=== PATIENT | male | born 1970 | race Caucasian/White ===

== ENCOUNTER 2017-06-07 15:34 | Emergency (ER) | payer OTHER ==
[~2017-06-07] VITALS: Ht 167.6 cm; Wt 92.1 kg
--- NOTE | 2017-06-07 16:50 | ED GENERAL ADULT ---
History of Present Illness General Chief Complaint: General Adult Stated Complaint: SIB PCP FOR HERNIA Source: patient Exam Limitations: no limitations Vital Signs & Intake/Output Vital Signs & Intake/Output Vital Signs Date Time Temp Pulse Resp B/P B/P Pulse O2 O2 Flow FiO2 Mean Ox Delivery Rate 06/07 2014 97.5 85 18 118/64 97 Room Air ED Intake and Output 03/ 0000 06/07 1200 Intake Total 1000 Output Total 1 Balance 999 Intake, IV 1000 Output, Urine 1 Patient 203 lb Weight Weight Reported by Patient Measurement Method Allergies Coded Allergies: No Known Allergies (06/07/17) Triage Note: PT SENT IN BY TERESSA THORNTON APRN FOR HERNIA. PT STATES HE IS HAVING ABD PAIN. PT REPORTS PAIN FOR THE PAST 3 DAYS WITH INCREASE IN PAIN TODAY. Triage Nurses Notes Reviewed? yes Onset: Abrupt Duration: day(s): (2-3), constant, continues in ED, getting worse Timing: recent history Injury Environment: home Severity: mild, moderate Severity Numbers: 8 No Modifying Factors: none HPI: 47-year-old male past medical history of chronic back pain presents for evaluation of abdominal pain and hernia. Patient states that he's had an abdominal wall hernia present for the past several years. He states that recently over the past few weeks is started to become more painful. He states that about 3 days ago the pain became severe and constant. He denies any trauma or heavy lifting or straining. The pain is located diffusely in his abdomen. It is worse with sitting upright or touching the area. No fever or changes in skin color nausea vomiting diarrhea. No chest pain or shortness of breath. He takes 30 mg oxycodone tablets 3 times a day for his chronic back pain. He states this has not been helping. No other medications for pain. (Collins Ortiz) Past History Travel History Traveled to [place] past 21 day No Medical History Any Pertinent Medical History? see below for history Gastrointestinal: HERNIA Musculoskeletal: CHRONIC BACK ISSUES Surgical History Surgical History: non-contributory Psychosocial History What is your primary language Ukrainian Tobacco Use: Current Not Daily Daily Tobacco Use Amount/Type: =< 4 Cigarettes daily ETOH Use: denies use Illicit Drug Use: denies illicit drug use Family History Hx Contributory? No (Collins Ortiz) Review of Systems Review of Systems Constitutional: Reports: no symptoms. EENTM: Reports: no symptoms. Respiratory: Reports: no symptoms. Cardiovascular: Reports: no symptoms. GI: Reports: see HPI, abdominal pain. Genitourinary: Reports: no symptoms. Musculoskeletal: Reports: see HPI, back pain. Skin: Reports: no symptoms. Neurological/Psychological: Reports: no symptoms. Hematologic/Endocrine: Reports: no symptoms. Immunologic/Allergic: Reports: no symptoms. All Other Systems: Reviewed and Negative (Collins Ortiz) Physical Exam Physical Exam General Appearance: well developed/nourished, no apparent distress, alert, awake , obese Head: atraumatic, normal appearance Eyes: Bilateral: normal appearance, PERRL, EOMI. Ears, Nose, Throat: normal pharynx, normal ENT inspection, hearing grossly normal Neck: normal inspection, supple, full range of motion Respiratory: normal breath sounds, chest non-tender, no respiratory distress, lungs clear Cardiovascular: regular rate/rhythm, normal peripheral pulses Peripheral Pulses: 2+ radial (R), 2+ radial (L) Gastrointestinal: normal bowel sounds, soft, no organomegaly, patient has what appears to be an abdominal wall defect located in the midline of the abdomen. No bruising or erythema or induration. The area is very easily reduced. Back: normal inspection, normal range of motion, lumbar paraspinous muscles tender to palpation bilaterally. No midline pain. No step-offs or deformities no bruising swelling or abrasions Extremities: normal inspection, normal range of motion, no edema Neurologic/Psych: no motor/sensory deficits, awake, alert, oriented x 3 Skin: intact, normal color, warm/dry Core Measures ACS in differential dx? No CVA/TIA Diagnosis: No Sepsis Present: No Sepsis Focused Exam Completed? No (Collins Ortiz) Progress Differential Diagnoses I considered the following diagnoses in my evaluation of the patient: [ Strangulated hernia, incarcerated hernia, hiatal hernia, cholecystitis, pancreatitis, small bowel obstruction gastritis] Plan of Care: Orders Procedure Date/time Status URINALYSIS 06/07 1710 Complete LIPASE 06/07 1710 Complete C-REACTIVE PROTEIN 06/07 1710 Complete COMPREHENSIVE METABOLIC PANEL 06/07 1710 Complete CBC WITHOUT DIFFERENTIAL 06/07 1710 Complete Laboratory Tests 06/07/17 1750: Urine Color YEL, Urine Clarity CLEAR, Urine pH 6.0, Ur Specific [place] 1.025, Urine Protein 30 H, Urine Ketones NEG, Urine Nitrite NEG, Urine Bilirubin NEG, Urine Urobilinogen 0.2, Ur Leukocyte Esterase TRACE H, Ur Microscopic SEDIMENT EXAMINED, Urine RBC RARE, Urine WBC 5-10 H, Ur Epithelial Cells RARE, Urine Bacteria FEW H, Urine Mucus MOD H, Urine Hemoglobin NEG, Urine Glucose NEG 06/07/17 1735: Anion Gap 8, Estimated GFR > 60, BUN/Creatinine Ratio 16.3, Glucose 121 H, Calcium 9.9, Total Bilirubin 0.3, AST 17, ALT 27, Alkaline Phosphatase 93, C- Reactive Prot, Quant 0.9, Total Protein 7.4, Albumin 4.2, Globulin 3.2, Albumin/ Globulin Ratio 1.3, Lipase 101, CBC w Diff NO MAN DIFF REQ, RBC 5.93, MCV 84.4, MCH 27.8, MCHC 32.9 L, RDW 16.4 H, MPV 10.3, Gran % 58.1, Lymphocytes % 31.0, Monocytes % 7.8, Eosinophils % 2.4, Basophils % 0.7, Absolute Granulocytes 4.6, Absolute Lymphocytes 2.4, Absolute Monocytes 0.6, Absolute Eosinophils 0.2, Absolute Basophils 0.1 Patient seen and evaluated. He has what appears to be abdominal wall defect that is easily reducible located in the midline of his abdomen. No signs of incarceration or strangulate. Patient was medicated with IV Tylenol and IV Toradol with some improvement. All blood work is within normal limits. No white blood cell count negative CRP. CT scan does not demonstrate any signs of strangulate or incarcerated hernia. Patient was instructed to continue Tylenol and ibuprofen as needed. Follow-up with general surgeon. Avoid straining heavy lifting or bending. Monitor symptoms return with any concerns. Diagnostic Imaging: Viewed by Me: CT Scan. Discussed w/RAD: CT Scan. Radiology Impression: ORDERING PHYSICIAN: Collins MIRANDA SERVICE DATE: EXAM TYPE: CAT - CT ABD & PELVIS W IV CONTRAST EXAMINATION: CT ABDOMEN AND PELVIS WITH CONTRAST CLINICAL INFORMATION: Worsening abdominal pain and swelling with palpable mass. Clinical concern for hernia. COMPARISON: None TECHNIQUE: Multidetector volumetric imaging was performed of the abdomen and pelvis following IV administration of 95 mL of Optiray 320 intravenous contrast. Sagittal and coronal reformatted images were obtained on the technologist's workstation. DLP: 430.80 mGy-cm FINDINGS: LUNG BASES: Minimal dependent atelectasis in the lung bases. Visualized heart and great vessels within normal limits. LIVER, GALLBLADDER, AND BILIARY TREE: The liver is normal in size, shape , and attenuation. No focal hepatic lesion or biliary ductal dilatation is present. The gallbladder is unremarkable with no evidence of radiopaque gallstones, gallbladder wall thickening, or obvious pericholecystic inflammatory changes. PANCREAS: Unremarkable. SPLEEN: Unremarkable. ADRENAL GLANDS: Unremarkable. KIDNEYS AND URETERS: The kidneys are symmetrically functioning without hydronephrosis. No perinephric collection. There is an exophytic oval 18 mm mass arising from the lateral interpolar right kidney (series 2 image ). This measures approximately 40 Hounsfield units and may represent a solid renal mass or complex cyst. Further evaluation with precontrast and postcontrast cross -sectional imaging (either MR or CT) is advised. Renal cell carcinoma is a consideration. BLADDER: Unremarkable. GASTROINTESTINAL TRACT: The visualized esophagus and stomach are normal in appearance. Small bowel is normal in caliber without mesenteric abnormality. No bowel obstruction. Submucosal fat deposition in the terminal ileum may represent prior inflammation; no active terminal ileitis. Normal appendix well seen in the right lower quadrant. Moderate amount of stool in the right and transverse colon. No large-bowel obstruction. No colitis. No free air. No free fluid. ABDOMINAL WALL: There is minor thinning of the linea alba. There is a tiny fat-containing umbilical hernia. No large ventral hernia. No bowel involvement. LYMPH NODES: Normal. VASCULAR: The abdominal aorta is normal in caliber with minor distal atherosclerotic disease. No retroperitoneal adenopathy or collection. PELVIC VISCERA: Prostate and seminal vesicles within normal limits. Vascular calcifications. No free fluid or adenopathy. OSSEOUS STRUCTURES: Minor degenerative changes including disc disease at the L5-S1 level. IMPRESSION: No hernia. No bowel obstruction. No free air or free fluid. There is an 18 mm exophytic mass arising from the lateral interpolar right kidney. Renal cell carcinoma is a consideration versus complex cyst. Recommend precontrast and postcontrast cross-sectional imaging with either CT or MR. DICTATED BY: Hector Boyer MD DATE/TIME DICTATED:06/07/171903 ARBORIST:DOMI DATE/TIME TRANSCRIBED:06/07/171903 CONFIDENTIAL, DO NOT COPY WITHOUT APPROPRIATE AUTHORIZATION. Initial ED EKG: none (Black PA,Collins) Departure Departure Disposition: HOME OR SELF CARE Condition: Stable Clinical Impression Primary Impression: Abdominal pain Qualifiers: Abdominal location: generalized Qualified Code: R10.84 - Generalized abdominal pain Referrals: Teressa Thornton APRN (PCP/Family) Sherwin TERRAZAS,Tigre Seo Additional Instructions: Rest, avoid heavy lifting and straining or excessive physical activity. Continue oxycodone as directed. He can also use regular Tylenol and regular ibuprofen. Make a follow-up appointment with her primary care doctor to review all results of today's visit. He'll also be referred to a general surgeon for further evaluation of a possible hernia. Monitor symptoms closely return with worsening pain, nausea, vomiting, diarrhea, unable tolerate fluids fevers or any other concerns. Please go over all results of today's visit with your primary care doctor. Contact your primary care doctor to let them know you were here in the emergency room. There may be nonspecific findings which may not be related to your visit today here in the emergency room but may require further evaluation and chronic monitoring by your primary care doctor. If you had a laceration today the chance of foreign body always remains. You should follow-up with your primary care doctor for recheck in 3-5 days for a wound check. If you had an x-ray done there is a chance that a fracture could have been missed on initial read and you should follow-up with your primary care doctor for repeat x-rays if symptoms persist. If your blood pressure was elevated here in the emergency room please have rechecked by her primary care doctor within the next 48 hours by your primary care doctor. If you were prescribed a narcotic here in the emergency room or any type of controlled substances you're not allowed to drive while taking this medication or operate any type of heavy machinery. Narcotics can make you feel lightheaded dizziness nausea and can cause constipation. You may need to waste picker a stool softener. Thank you for choosing [facility] emergency room. Please return to the emergency room immediately if you have any other concerns worsening of symptoms. Departure Forms: Customer Survey General Discharge Information (Collins Ortiz) PA/MECHANICAL COMMISSIONING ENGINEER Co-Sign Statement Statement: ED Attending supervision documentation- I saw and evaluated the patient. I have also reviewed all the pertinent lab results and diagnostic results. I agree with the findings and the plan of care as documented in the PA's/MECHANICAL COMMISSIONING ENGINEER's documentation. x I have reviewed the ED Record and agree with the PA's/MECHANICAL COMMISSIONING ENGINEER's documentation. [] Additions or exceptions (if any) to the PAs/MECHANICAL COMMISSIONING ENGINEER's note and plan are summarized below: [] (Gutierrez TERRAZAS,Momo) Critical Care Note Critical Care Note Critical Care Time: non-applicable (Reymundo MIRANDA,Collins)
[2017-06-07 18:14] LABS: ABSOLUTE BASOPHIL COUNT 0.1 /CUMM (0.0-0.2); ABSOLUTE EOSINOPHIL COUNT 0.2 /CUMM (0.0-0.7); ABSOLUTE GRANULOCYTE CT 4.6 /CUMM (1.4-6.5); ABSOLUTE LYMPH COUNT 2.4 /CUMM (1.2-3.4); ABSOLUTE MONOCYTE COUNT 0.6 /CUMM (0.10-0.60); BASOPHIL % 0.7 % (0.0-2.0); EOSINOPHIL % 2.4 % (0-5); GRANULOCYTE % 58.1 % (42.2-75.2); MEAN CORPUSCULAR HGB 27.8 PG (27.0-31.0); MEAN CORPUSCULAR HGB CONC 32.9 G/DL (33.0-37.0); MEAN CORPUSCULAR VOLUME 84.4 FL (80.0-94.0); MEAN PLATELET VOLUME 10.3 FL (7.4-10.4); PLATELET COUNT 197 /CUMM (130-400); RBC DISTRIBUTION WIDTH 16.4 % (11.5-14.5); RED BLOOD CELL CT 5.93 /CUMM (4.70-6.10); WHITE BLOOD CELL COUNT 7.9 /CUMM (4.8-10.8)
--- NOTE | 2017-06-07 19:43 | CT SCAN REPORT ---
EXAMINATION: CT ABDOMEN AND PELVIS WITH CONTRAST CLINICAL INFORMATION: Worsening abdominal pain and swelling with palpable mass. Clinical concern for hernia. COMPARISON: None TECHNIQUE: Multidetector volumetric imaging was performed of the abdomen and pelvis following IV administration of 95 mL of Optiray 320 intravenous contrast. Sagittal and coronal reformatted images were obtained on the technologist's workstation. DLP: 430.80 mGy-cm FINDINGS: LUNG BASES: Minimal dependent atelectasis in the lung bases. Visualized heart and great vessels within normal limits. LIVER, GALLBLADDER, AND BILIARY TREE: The liver is normal in size, shape, and attenuation. No focal hepatic lesion or biliary ductal dilatation is present. The gallbladder is unremarkable with no evidence of radiopaque gallstones, gallbladder wall thickening, or obvious pericholecystic inflammatory changes. PANCREAS: Unremarkable. SPLEEN: Unremarkable. ADRENAL GLANDS: Unremarkable. KIDNEYS AND URETERS: The kidneys are symmetrically functioning without hydronephrosis. No perinephric collection. There is an exophytic oval 18 mm mass arising from the lateral interpolar right kidney (series 2 image ). This measures approximately 40 Hounsfield units and may represent a solid renal mass or complex cyst. Further evaluation with precontrast and postcontrast cross-sectional imaging (either MR or CT) is advised. Renal cell carcinoma is a consideration. BLADDER: Unremarkable. GASTROINTESTINAL TRACT: The visualized esophagus and stomach are normal in appearance. Small bowel is normal in caliber without mesenteric abnormality. No bowel obstruction. Submucosal fat deposition in the terminal ileum may represent prior inflammation; no active terminal ileitis. Normal appendix well seen in the right lower quadrant. Moderate amount of stool in the right and transverse colon. No large-bowel obstruction. No colitis. No free air. No free fluid. ABDOMINAL WALL: There is minor thinning of the linea alba. There is a tiny fat-containing umbilical hernia. No large ventral hernia. No bowel involvement. LYMPH NODES: Normal. VASCULAR: The abdominal aorta is normal in caliber with minor distal atherosclerotic disease. No retroperitoneal adenopathy or collection. PELVIC VISCERA: Prostate and seminal vesicles within normal limits. Vascular calcifications. No free fluid or adenopathy. OSSEOUS STRUCTURES: Minor degenerative changes including disc disease at the L5-S1 level. IMPRESSION: No hernia. No bowel obstruction. No free air or free fluid. There is an 18 mm exophytic mass arising from the lateral interpolar right kidney. Renal cell carcinoma is a consideration versus complex cyst. Recommend precontrast and postcontrast cross-sectional imaging with either CT or MR.
[2017-06-07 20:15] VITALS: BP 118/64
== END 2017-06-07 20:13 ==
LOC: ERH 15:34
PROVIDERS: Physician Assistant Medical
DX: R10.9 Unspecified abdominal pain (principal)
CPT/HCPCS: 74177; 81001; 96374; 96375; J0131; J1885

== ENCOUNTER 2017-11-11 09:42 | Inpatient (IN) | payer OTHER ==
[~2017-11-11] VITALS: Ht 167.6 cm; Wt 84.5 kg
--- NOTE | 2017-11-11 10:05 | ED DYSPNEA/ASTHMA COMPLAINT ---
History of Present Illness General Chief Complaint: Dyspnea (COPD, CHF, Other) Stated Complaint: SOB/DX WITH PNA AND COPD LAST WEEK Source: patient Exam Limitations: no limitations Vital Signs & Intake/Output Vital Signs & Intake/Output Vital Signs Date Time Temp Pulse Resp B/P B/P Pulse O2 O2 Flow FiO2 Mean Ox Delivery Rate 11/11 1518 98.5 90 20 130/68 95 Nasal 4.0L Cannula 11/11 1508 94 Nasal 4.0L Cannula 11/11 1353 99.9 101 24 160/88 94 Nasal 4.0L Cannula 11/11 1058 96 Nasal 2.0L Cannula 11/11 1053 92 Nasal 2.0L Cannula 11/11 0946 100.1 124 22 153/76 90 Room Air Allergies Coded Allergies: onion (FACIAL AND TONGUE SWELLING, CAN'T BREATHE 11/11/17) pepper (FACIAL, TONGUE, THROAT SWELLS AND CANT BREATHE 11/11/17) Triage Note: STATES THAT HE HAS COPD AND THAT HE HAS BEEN FEELING SOB AND DIZZY FOR THE PAST 1 HOUR, O2 SAT 90-93 AT TRIAGE. PT ALSO STATES THAT HE HAS HISTORY OF PANICK ATTACKS AND CAN'T BE ADMITTED TO THE HOSPITAL Triage Nurses Notes Reviewed? yes Onset: Abrupt Duration: week(s): (2), constant, getting worse Timing: recent history Severity: moderate, severe HPI: 47-year-old male recently diagnosed with COPD comes into the emergency room with cough shortness of breath fever chills body aches. Patient has been feeling sick for the last couple weeks. He reports he was at [facility] and they ran tests on him and then he left because he does not like staying in the hospital and he was on a Z-Schuyler. He is an every day smoker. He denies any other past medical history. Denies any chest pain. He comes in for further evaluation. (Francesco Plasencia) Reconcile Medications Clonidine HCl 0.1 MG TABLET 1 TAB PO BID . (Reported) Folic Acid 1 MG TABLET 1 TAB PO DAILY SUPPLEMENT (Reported) Mirtazapine 30 MG TABLET 1 TAB PO QPM SLEEP (Reported) Omeprazole 40 MG CAPSULE.DR 1 CAP PO DAILY GI (Reported) Pregabalin (Lyrica) 300 MG CAPSULE 1 CAP PO TID NERUPATHY (Reported) (Israel Oconnor DO) Past History Travel History Traveled to [place] past 21 day No Medical History Any Pertinent Medical History? 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 No (Francesco Plasencia) Review of Systems Review of Systems Constitutional: Reports: see HPI. EENTM: Reports: no symptoms. Respiratory: Reports: see HPI. Cardiovascular: Reports: no symptoms. GI: Reports: no symptoms. Genitourinary: Reports: no symptoms. Musculoskeletal: Reports: no symptoms. Skin: Reports: no symptoms. Neurological/Psychological: Reports: no symptoms. Hematologic/Endocrine: Reports: no symptoms. Immunologic/Allergic: Reports: no symptoms. All Other Systems: Reviewed and Negative (Francesco Plasencia) Physical Exam Physical Exam General Appearance: well developed/nourished, alert, awake, mild distress Head: atraumatic Eyes: Bilateral: normal appearance. Ears, Nose, Throat: normal ENT inspection, hearing grossly normal Neck: normal inspection Respiratory: no respiratory distress, decreased breath sounds Cardiovascular: regular rate/rhythm, tachycardia Extremities: normal inspection Neurologic/Psych: awake, alert, oriented x 3 Skin: intact, normal color Core Measures ACS in differential dx? No CVA/TIA Diagnosis No Sepsis Present: No Sepsis Focused Exam Completed? No (Francesco Plasencia) Progress Differential Diagnosis: asthma, AMI, bronchitis, costochondritis, CHF, COPD, musculoskeletal pain, pericarditis, pulmonary embolism, pneumonia, pneumothorax, rib fracture, unstable angina Plan of Care: Orders Procedure Date/time Status CBC WITHOUT DIFFERENTIAL 11/12 599 Active BASIC ELECTROLYTES PLUS BUN&CR 11/12 06 Active Consistent Carbohydrate 2 11/11 D Active LOWER RESPIRATORY CULTURE 11/11 1508 Active ARTERIAL BLOOD GAS (GEN) 11/11 1507 Active Pathway - chart 11/11 1500 Active TRC EVALUATION (GEN) 11/11 1459 Active OXYGEN SETUP (GEN) 11/11 1459 Active Pathway - chart 11/11 1459 Active House Staff 11/11 1459 Active Code Status 11/11 1459 Active Weight 11/11 1434 Active Teach/Educate 11/11 1434 Active Pain Treatment and Response 11/11 1434 Active Nutritional Intake, Monitor 11/11 1434 Active Isolation 11/11 1434 Active Patient Care Conference 11/11 1434 Active Activity/Ambulation 11/11 1434 Active Intake & Output 11/11 1411 Active Patient Data 11/11 1313 Active ED Holding Orders 11/11 1255 Active Admit to inpatient 11/11 1255 Active Vital Signs 11/11 1255 Active LACTIC ACID 11/11 1255 Active Code Status 11/11 1255 Complete Add-on Test (ER Only) 11/11 1116 Active PROTHROMBIN TIME 11/11 1043 Complete D-DIMER 11/11 1043 Complete BLOOD CULTURE 11/11 0955 Active TROPONIN LEVEL 11/11 0955 Complete LACTIC ACID 11/11 0955 Complete COMPREHENSIVE METABOLIC PANEL 11/11 0955 Complete CBC WITHOUT DIFFERENTIAL 11/11 0955 Complete EKG 11/11 0955 Active VTE Mechanical Prophylaxis 11/11 UNK Active FingerStick- Glucose 11/11 UNK Active Current Medications Sig/Ozzie Start time Last Medication Dose Stop Time Status Admin Enoxaparin Sodium 40 MG DAILY 11/12 0900 AC (Lovenox) Folic Acid 1 MG DAILY 11/12 0900 UNVr (Folic Acid) Omeprazole 40 MG DAILY AC 11/12 0700 UNVr (Prilosec) Methylprednisolone 40 MG Q8 11/11 2200 AC (Solumedrol) Clonidine 0.1 MG BID 11/11 2100 UNVr (Catapres) Mirtazapine 30 MG QPM 11/11 2100 UNVr (Remeron) Insulin Aspart 0 TIDAC 11/11 1700 AC (NovoLOG) Pregabalin 300 MG TID 11/11 1552 UNVr (Lyrica) Nicotine 14 MG DAILY 11/11 1501 AC (Nicotine Cq) Acetaminophen 650 MG Q6P PRN 11/11 1500 AC (Tylenol) Acetaminophen 1,000 MG Q6P PRN 11/11 1500 AC (Ofirmev) Melatonin 5 MG AT BEDTIME PRN 11/11 1500 AC (Melatonin) Polyethylene Glycol 17 GM AT BEDTIME PRN 11/11 1500 AC (Miralax) Laboratory Tests 11/11/17 1047: Anion Gap 9, Estimated GFR > 60, BUN/Creatinine Ratio 14.4, Glucose 128 H, Lactic Acid 1.2, Calcium 9.6, Total Bilirubin 0.2, AST 20, ALT 22, Alkaline Phosphatase 89, Troponin I < 0.01, Total Protein 7.9, Albumin 4.5, Globulin 3.4, Albumin/Globulin Ratio 1.3, CBC w Diff MAN DIFF ORDERED, RBC 4.88, MCV 90.5, MCH 29.7, MCHC 32.8 L, RDW 14.3, MPV 9.2, Gran % 86.4 H, Lymphocytes % 7.2 L, Monocytes % 5.2, Eosinophils % 1.0, Basophils % 0.2, Absolute Granulocytes 9.9 H, Absolute Lymphocytes 0.8 L, Absolute Monocytes 0.6, Absolute Eosinophils 0.1 , Absolute Basophils 0, Platelet Estimate VERIFIED BY SMEAR, Basophilic Stippling SLIGHT, Stomatocytes 1+ 11/11/17 1043: PT 10.9, INR 1.00, D-Dimer High Sensitivty < 200 Microbiology 11/11 1508 LOWER RESP: Respiratory Culture - COLB 11/11 1508 LOWER RESP: Gram Stain - COLB 11/11 1118 BLOOD: Blood Culture - RECD 11/11 1047 BLOOD: Blood Culture - RECD Diagnostic Imaging: Viewed by Me: Radiology Read. Discussed w/RAD: Radiology Read. Radiology Impression: PATIENT: DAVE MOONEY PRESENT AGE: 47 PATIENT ACCOUNT NO: [id number] : 72 LOCATION: [facility] ORDERING PHYSICIAN: Francesco MIRANDA SERVICE DATE: 11/11/17 EXAM TYPE: RAD - XRY-CHEST XRAY, TWO VIEWS EXAMINATION: XR CHEST CLINICAL INFORMATION: Shortness of breath COMPARISON: None TECHNIQUE: 2 views of the chest were obtained. FINDINGS: The lungs are well-inflated and clear. Trachea is midline in position. No interstitial disease, consolidation, mass, pneumothorax or pleural effusion. The cardiac silhouette is normal in size. The mediastinal, hilar and diaphragmatic contours are normal. Mild multilevel discovertebral degenerative change of thoracic spine. The upper abdomen is unremarkable. IMPRESSION: No acute pulmonary disease. DICTATED BY: Joaquín Carroll MD DATE/TIME DICTATED:07/26 SEWING MACHINE OPERATOR ZIPPER:DOMI DATE/TIME TRANSCRIBED:11/11/171054 CONFIDENTIAL, DO NOT COPY WITHOUT APPROPRIATE AUTHORIZATION. <Electronically signed in Other Vendor System> SIGNED BY: Joaquín Carroll MD 11/11/17 1100 Initial ED EKG: normal sinus rhythm, rate (111), borderline T-wave abnormalities (Francesco Plasencia) Departure Departure Disposition: STILL A PATIENT Condition: Stable Clinical Impression Primary Impression: COPD exacerbation Secondary Impressions: Hypoxia Referrals: Teressa Hoang APRN (PCP/Family) Departure Forms: Customer Survey General Discharge Information Admission Note Spoke With: Sasha Pendleton MD Documentation of Exam: Documentation of any treatments & extenuating circumstances including Concerns Regarding Discharge (functional status, medication knowledge or non-compliance, living conditions, etc.) that warrant an admission rather than observation: Patient will require supplemental oxygen. IV steroids. Breathing treatments. Pulmonary consult. Hypoxic still despite O2 and nebulizer treatments and steroids. Failed outpatient treatment with oral medications. (Francesco Plasencia) PA/SEROLOGY TECHNICIAN Co-Sign Statement Statement: ED Attending supervision documentation- [X] I saw and evaluated the patient. I have also reviewed all the pertinent lab results and diagnostic results. I agree with the findings and the plan of care as documented in the PA's/SEROLOGY TECHNICIAN's documentation. [] I have reviewed the ED Record and agree with the PA's/SEROLOGY TECHNICIAN's documentation. [] Additions or exceptions (if any) to the PAs/SEROLOGY TECHNICIAN's note and plan are summarized below: [] 47-year-old male with difficulty breathing and history of COPD. He was in moderate distress on my exam with poor air. (Elvin PAINTER,Israel Llanos) Critical Care Note Critical Care Note Critical Care Time: 30-74 min (45) (Francesco Plasencia)
--- NOTE | 2017-11-11 11:00 | RADIOLOGY REPORT ---
EXAMINATION: XR CHEST CLINICAL INFORMATION: Shortness of breath COMPARISON: None TECHNIQUE: 2 views of the chest were obtained. FINDINGS: The lungs are well-inflated and clear. Trachea is midline in position. No interstitial disease, consolidation, mass, pneumothorax or pleural effusion. The cardiac silhouette is normal in size. The mediastinal, hilar and diaphragmatic contours are normal. Mild multilevel discovertebral degenerative change of thoracic spine. The upper abdomen is unremarkable. IMPRESSION: No acute pulmonary disease.
[2017-11-11 11:34] LABS: ABSOLUTE BASOPHIL COUNT 0 /CUMM (0.0-0.2); ABSOLUTE EOSINOPHIL COUNT 0.1 /CUMM (0.0-0.7); ABSOLUTE GRANULOCYTE CT 9.9 /CUMM (1.4-6.5); ABSOLUTE LYMPH COUNT 0.8 /CUMM (1.2-3.4); ABSOLUTE MONOCYTE COUNT 0.6 /CUMM (0.10-0.60); BASOPHIL % 0.2 % (0.0-2.0); GRANULOCYTE % 86.4 % (42.2-75.2); HEMATOCRIT 44.2 % (42-52); MEAN CORPUSCULAR HGB 29.7 PG (27.0-31.0); MEAN CORPUSCULAR HGB CONC 32.8 G/DL (33.0-37.0); MEAN CORPUSCULAR VOLUME 90.5 FL (80.0-94.0); MEAN PLATELET VOLUME 9.2 FL (7.4-10.4); PLATELET COUNT 257 /CUMM (130-400); RBC DISTRIBUTION WIDTH 14.3 % (11.5-14.5); RED BLOOD CELL CT 4.88 /CUMM (4.70-6.10); WHITE BLOOD CELL COUNT 11.5 /CUMM (4.8-10.8)
[2017-11-11 11:47] LABS: PT 10.9 SEC (9.4-12.5)
--- NOTE | 2017-11-11 13:18 | History & Physical ---
Ethan Myles 11/11/17 1315: General Information and HPI History of Present Illness: Job Harmon is a 47 YO anxious male with a PMHx. reported of COPD, T2DM, Charcot Elana Tooth Disease, and Anxiety who presents to the ED with complaints of "shortness of breath." Patient mentions he can not remember the last time he was normal but states he was at [facility] one week prior for difficulty breathing as well. Patient states prior to coming to the hospital he had been having difficulty catching his breath with associated coughing but no sputum production. Patient states he has trouble sleeping at night but denies any shortness of breath or coughing while lying flat. Patient states he has been to [facility] two times recently in the past month and stays only a day each time because he states he gets panic attacks while in the hospital. Patient is concerned whether he will have to be on home oxygen after this current episode. Patient states in the past he has experienced chest pain but is not currently having any chest pain. Patient otherwise denies any recent nausea, vomiting, diarrhea, constipation, fevers, chills, and abdominal pain. Patients states he quit smoking 1 month ago but starting again recently. Patient states he smokes about less than 1 pack per day for past 35 years. Patient states he drinks alcohol occasionally and apart from smoking marijuana sparingly he denies any illicit drug usage. Patient states he is disabled and lives at home. Patient states he has a health aide that comes to visit him 5 times per week for assistance. Patients PCP is Teressa Hoang APRN. Patient's current medications, attained from [facility] in [place], [place] have been prescribed by Dr. Bro Estes. 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 Home Smoking Status: Current Everyday Smoker (less than a pack per day) ETOH Use: denies use Illicit Drug Use: denies illicit drug use Review of Systems Review of Systems Constitutional: Denies: chills, fever. Cardiovascular: Reports: chest pain. Denies: orthopena, peripheral edema. Respiratory: Reports: cough, short of breath, sputum production. Denies: orthopnea. GI: Denies: abdominal pain, constipation, diarrhea, nausea, vomiting. Musculoskeletal: Reports: back pain. Neurological/Psychological: Reports: anxiety. Exam & Diagnostic Data Last 24 Hrs of Vital Signs/I&O Vital Signs Date Time Temp Pulse Resp B/P B/P Pulse O2 O2 Flow FiO2 Mean Ox Delivery Rate 11/11 1353 99.9 101 24 160/88 94 Nasal 4.0L Cannula 11/11 1058 96 Nasal 2.0L Cannula 11/11 1053 92 Nasal 2.0L Cannula 11/11 0946 100.1 124 22 153/76 90 Room Air Intake & Output 11/11 1600 11/11 0800 11/11 0000 Intake Total Output Total Balance Patient 180 lb Weight Physical Exam General Appearance Alert, Oriented X3, Mild Distress Skin No Rashes, No Breakdown HEENT Atraumatic, PERRLA Neck Supple, No JVD Cardiovascular Normal S1, Normal S2, No Murmurs Lungs Clear to Auscultation, Decreased breath sounds b/l Abdomen Soft, No Tenderness Neurological Strength at 5/5 X4 Ext, left arm tremor with movement Extremities No Edema Assessment/Plan Assessment: Assessment Imaging- CXR: No acute pulmonary disease. Pertinent Findings- WBC 11.5 NA 138 K+ 4.5 Carbon Dioxide 32 47 YO male who was lasted admitted to [facility] one week prior presents to the ED with shortness of breath and increased work of breathing. He has a past medical history of COPD, T2DM, and Charcot Elana Tooth disease. At the time of admission-temperature 100.1 , pulse rate 124 , respiration 22 , blood pressure 153/76, pulse ox 90 on room air. Etiology in this case of this dyspnea and increased work of breathing with improvement of oxygen saturation on 4 L nasal cannula is likely related to Hypercapneic Respiratory Failure. Treatment involves initiating bronchodilator therapy with subsequent steroid administration to decrease inflammatory process and work of breathing. Likely patient's presentation is related to long standing history of tobacco usage without any history of established home regimen treatment with either bronchodilator and/or steroids. Plan #Hypercapneic Respiratory Failure - Acute worsening of patient's respiratory symptoms beyond baseline in patient with history of Chronic Obstructive Pulmonary Disease - Admit to general medicine floor for monitoring and assessment of vitals/ breathing - Oxygen therapy to maintain saturation > 92% via NC - Solu-Medrol 40 mg q8 hours + Albuterol q4 hours prn - ABG follow-up to assess for any developing acidemia and CO2 retention - CXR: No acute disease - DVT PPx. #Home medications - Continue home medications as indicated Code: DNR/DNI As Ranked By This Provider Problem List: 1. COPD exacerbation 2. Anxiety Core Measures/Misc (12/25) Acute Coronary Syndrome ACS Diagnosis: No Congestive Heart Failure Congestive Heart Failure Diagnosis No Cerebrovascular Accident CVA/TIA Diagnosis: No VTE (View Protocol) VTE Risk Factors Acute Medical Illness No Mechanical VTE Prophylaxis d/t N/A MechProphylax Ordered No VTE Pharm Prophylaxis d/t NA PharmProphylax ordered Sepsis (View protocol) Sepsis Present: No If YES complete Sepsis Event Note If YES complete Sepsis Event Note Niall Valentine MD 11/11/17 1320: Core Measures/Misc (12/25) Sepsis (View protocol) If YES complete Sepsis Event Note If YES complete Sepsis Event Note Resident Review Statement Resident Statement: examined this patient, discussed with collector of internal revenue, agreed with collector of internal revenue, reviewed EMR data (avail), discussed with nursing, discussed with case mgmt, reviewed images, amended to note Other Findings: 47 yo M with pmh of active smoker, clinically diagnosed COPD, type 2 diabetes, chart could be retracted disease, anxiety, presented to the emergency department with shortness of breath for a day. Last week, he had visited emergency department of [facility] 2 times, and on the second visit he agreed to get admitted for management of acute exacerbation of COPD which was diagnosed then clinically. However, he left AGAINST MEDICAL ADVICE, and was not sure if he was discharged with antibiotics/steroids then. He continued to smoke after his discharge, and started having shortness of breath, and felt more anxious earlier today, which brought him to the ED. he denies any fever/chills, cough or sputum production, sick contacts, chest pain, palpitation though. He was found to be hypoxic to 85% on room air, while also having features of mild respiratory distress, and thus is being admitted in the general medical floor for the management of following issues: #AE of COPD Patient's clinical feature is typical of COPD exacerbation, although his is is not typical for presentation of COPD. He does not know about his biological parents/family history even though he mentioned earlier that his brother and father (not biological) both had COPD early in life (both smokied cigarettes too ). 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 * Admission in general medical floor with regular vitals, and oxygen via nasal cannula with target >92% * IV Solu-Medrol 40 mg every 8 hours * TRC/nebs * ABG to see if he is a chronic CO2 retainer or is decompensating given his high CO2 * No need for antibiotics for current assessment, given no leukocytosis, no fever, good chest x-ray, not in worsening respiratory failure. #The patient has a long list of medication including antipsychotics as well, but he has not been taking those medications. However the medications that he currently takes has been ordered already. The full list can again be obtained by contacting his regular pharmacy which is [facility] in [place]. #Diet: CC2 #DVT ppx: SQ Lovenox #Code status: DNR/DNI. The understanding of the CODE STATUS, including DNR/DNI was clearly discussed with the patient, and he clearly mentioned that he does not want any resuscitative or intubation efforts if it comes to the point when it's required. Helder TERRAZAS,[facility] 11/11/17 1703: General Information and HPI Allergies/Medications Home Med list Clonidine HCl 0.1 MG TABLET 1 TAB PO BID . (Reported) Folic Acid 1 MG TABLET 1 TAB PO DAILY SUPPLEMENT (Reported) Mirtazapine 30 MG TABLET 1 TAB PO QPM SLEEP (Reported) Omeprazole 40 MG CAPSULE.DR 1 CAP PO DAILY GI (Reported) Pregabalin (Lyrica) 300 MG CAPSULE 1 CAP PO TID NERUPATHY (Reported) Core Measures/Misc (12/25) Sepsis (View protocol) If YES complete Sepsis Event Note If YES complete Sepsis Event Note Attending MD Review Statement Attending Statement Attending MD Statement: examined this patient, discuss w/resident/PA/CORPORATE TRAINING MANAGER, agreed w/resident/PA/CORPORATE TRAINING MANAGER, reviewed EMR data (avail), discussed with nursing, reviewed images, amended to note Attending Assessment/Plan: 47-year-old male with past medical history significant for diabetes, questionable COPD, [id number], anxiety who presented with shortness of breath. Apparently patient had been seen in [facility] 2 weeks ago for the same issue. He claims that he was prescribed azithromycin but he left the hospital. His breathing never improved and he continued to have some shortness of breath and dyspnea on exertion. He is a current smoker and smokes half a pack of cigarettes a day. He was found to be hypoxic in the emergency room. He received IV steroids and TRC nebs. He denies any fevers, cough, chills, cough or any sputum production. He denies any chest pain. Vital Signs Date Time Temp Pulse Resp B/P B/P Pulse O2 O2 Flow FiO2 Mean Ox Delivery Rate 11/11 1518 98.5 90 20 130/68 95 Nasal 4.0L Cannula 11/11 1508 94 Nasal 4.0L Cannula 11/11 1353 99.9 101 24 160/88 94 Nasal 4.0L Cannula 11/11 1058 96 Nasal 2.0L Cannula 11/11 1053 92 Nasal 2.0L Cannula 11/11 0946 100.1 124 22 153/76 90 Room Air on exam; aox3, nad. cv; s1,s2, rrr resp; coarse bs overall. abd; soft, nt, bs+ ext; no edema Laboratory Tests 11/11 11/11 11/11 1645 1047 1043 Blood Gas pH (7.35 - 7.45 PH) 7.31 L pCO2 (35 - 45 TORR) 55 H pO2 (80 - 100 TORR) 92 HCO3 (21 - 28 MEQ/L) 27 ABG O2 Sat (Measured) (>96.0 %) 95.0 L Carboxyhemoglobin (1.5 - 5.0 %) 2.1 O2 Concentration % 2L Temperature (97.0 - 100.0 FARH) 98.5 O2 Delivery Method NC Chemistry Sodium (137 - 145 mmol/L) 138 Potassium (3.5 - 5.1 mmol/L) 4.5 Chloride (98 - 107 mmol/L) 97 L Carbon Dioxide (22 - 30 mmol/L) 32 H Anion Gap (5 - 16) 9 BUN (9 - 20 mg/dL) 13 Creatinine (0.7 - 1.2 mg/dL) 0.9 Estimated GFR (>60 ml/min) > 60 BUN/Creatinine Ratio (7 - 25 %) 14.4 Glucose (65 - 99 mg/dL) 128 H Lactic Acid (0.7 - 2.1 mmol/L) 1.2 Calcium (8.4 - 10.2 mg/dL) 9.6 Total Bilirubin (0.2 - 1.3 mg/dL) 0.2 AST (17 - 59 U/L) 20 ALT (21 - 72 U/L) 22 Alkaline Phosphatase (< 127 U/L) 89 Troponin I (<0.11 ng/ml) < 0.01 Total Protein (6.3 - 8.2 g/dL) 7.9 Albumin (3.5 - 5.0 g/dL) 4.5 Globulin (1.9 - 4.2 gm/dL) 3.4 Albumin/Globulin Ratio (1.1 - 2.2 %) 1.3 Coagulation PT (9.4 - 12.5 SEC) 10.9 INR (0.90 - 1.17) 1.00 D-Dimer High Sensitivty (0 - 243 ng/ml) < 200 Hematology CBC w Diff MAN DIFF ORDERED WBC (4.8 - 10.8 /CUMM) 11.5 H RBC (4.70 - 6.10 /CUMM) 4.88 Hgb (14.0 - 18.0 G/DL) 14.5 Hct (42 - 52 %) 44.2 MCV (80.0 - 94.0 FL) 90.5 MCH (27.0 - 31.0 PG) 29.7 MCHC (33.0 - 37.0 G/DL) 32.8 L RDW (11.5 - 14.5 %) 14.3 Plt Count (130 - 400 /CUMM) 257 MPV (7.4 - 10.4 FL) 9.2 Gran % (42.2 - 75.2 %) 86.4 H Lymphocytes % (20.5 - 51.1 %) 7.2 L Monocytes % (1.7 - 9.3 %) 5.2 Eosinophils % (0 - 5 %) 1.0 Basophils % (0.0 - 2.0 %) 0.2 Absolute Granulocytes (1.4 - 6.5 /CUMM) 9.9 H Absolute Lymphocytes (1.2 - 3.4 /CUMM) 0.8 L Absolute Monocytes (0.10 - 0.60 /CUMM) 0.6 Absolute Eosinophils (0.0 - 0.7 /CUMM) 0.1 Absolute Basophils (0.0 - 0.2 /CUMM) 0 Platelet Estimate (ADEQUATE) VERIFIED BY SMEAR Basophilic Stippling SLIGHT Stomatocytes 1+ Miscellaneous Phlebotomy Draw Site LEFT RADIAL CXR: No acute pulm finding. A/P: 47-year-old male with past medical history significant for diabetes, questionable COPD, [id number], anxiety admitted with acute was hypoxic and hypercarbic failure, Ac COPD exacerbation. Patient admitted to medicine floor. He will be started on IV steroids, TRC nebs. Will obtain sputum culture. Patient with low-grade fever. He has taken azithromycin recently. We will watch him off of antibiotics. His cultures grew any infection and he will be treated with antibiotics. ABG is consistent with hypercarbia and respiratory acidosis. We will start the patient on BiPAP 12/14 with rate of 20. He can remain on BiPAP overnight and we will repeat his blood gas in the morning. I discussed this with Dr. Valentin. Please avoid any sedatives, narcotics and benzos. Continue the patient on his psych medications. Sliding scale insulin and Accu- Cheks for diabetes. Expect hyperglycemia secondary to steroids. DVT px: Lovenox. Patient is DNR/DNI and I discussed this at length with the patient.
[2017-11-11 15:18] VITALS: BP 130/68
[2017-11-11] MEDS ORDERED: LYRICA300 M1 PO (15:49)
[2017-11-11] MEDS ORDERED: CLONIDINE HCL0.1 MG PO (15:49)
[2017-11-11] MEDS ORDERED: MIRTAZAPINE30 M2 PO (15:49)
[2017-11-11] MEDS ORDERED: DORYX PO (15:50)
[2017-11-11] MEDS ORDERED: FOLIC ACID1 M1 PO (15:50)
[2017-11-11] MEDS ORDERED: OMEPRAZOLE40 M1 PO (15:50)
[2017-11-11 21:54] VITALS: BP 103/68
[2017-11-12 06:26] VITALS: BP 98/70
--- NOTE | 2017-11-12 07:43 | Event Note ---
Event Note Event Note: S: Patient was refusing BiPAP overnight due to the reluctance to use any face mask. This morning, patient believed he is breathing fine and wants to leave AMA. B: 47-year-old male with past medical history significant for diabetes, questionable COPD, Rshuwol-Dcsry-Fsehb, anxiety admitted with acute was hypoxic and hypercarbic failure, Ac COPD exacerbation. A/R Patient's latest vital signs stable afebrile without tachypnea, breathing under RA 93%. He was only on NC4L overnight. Patient had decided to leave against medical advice because he felt he is improved and no longer needs medical care. Patient is AO x 3 and well-aware of the reason of his admission and has adequate capacity to make medical decision. The patient refuses further care inpatient and wants to be discharged. He stated that he will follow up with his PCP and if any referral to life claims examiner. The risks have been explained to the patient, including recurrence of current symptoms including COPD exacerbation/hypoxia, worsening illness that may require immediate medical attention which would not be attainable if he is to be discharged AMA, and may lead to permanent disability and possible . The benefits of admission have also been explained, including the availability and proximity of nurses, physicians, monitoring, diagnostic testing, treatments. The patient was able to understand and state the risks and benefits of hospital admission. This was witnessed by nurse staff and me. Patient had the opportunity to ask questions about their medical condition. Patient was advised and acknowledged that he was treated to the extent that they would allow and knows that they may return for care at any time. Follow-up has been discussed and arranged with Attending doctor.
[2017-11-12] MEDS ORDERED: PREDNISONE10 M2 PO ×2 (07:45→10:07)
--- NOTE | 2017-11-12 07:47 | Patient Discharge Instructions ---
Discharge Instructions General Discharge Information Special Instructions: - Please follow up with your primary care physician within 1-2 weeks of discharge. Inform your primary care physician of this admission to [facility]. - Continue your current medications per discharge instructions. - Please watch for these problems: Fever, Chills, Nausea, Vomiting, Shortness of Breath, Productive Cough, Chest Pain/Discomfort, Abdominal Pain, Active Bleeding or Bloody urine/stool. Acute Coronary Syndrome Inclusion Criteria At DC or during hospital stay patient has or had the following: ACS DIAGNOSIS No Discharge Core Measures Meds if any: Prescribed or Continued at Discharge Meds if any: NOT Prescribed or Continued at Discharge Congestive Heart Failure Inclusion Criteria At DC or during hospital stay patient has or had the following: CHF DIAGNOSIS No Discharge Core Measures Meds if any: Prescribed or Continued at Discharge Meds if any: NOT Prescribed or Continued at Discharge Cerebrovascular accident Inclusion Criteria At DC or during hospital stay patient has or had the following: CVA/TIA Diagnosis No Discharge Core Measures Meds if any: Prescribed or Continued at Discharge Meds if any: NOT Prescribed or Continued at Discharge Venous thromboembolism Inclusion Criteria VTE Diagnosis No VTE Type NONE VTE Confirmed by (Test) NONE Discharge Core Measures - Per Current guidelines, there needs to be overlap - treatment for the first 5 days of Warfarin therapy. - If discharged on Warfarin prior to 5 days of - overlap therapy, the patient will need to be - assessed for post discharge needs including - *Post discharge parental anticoagulation - *Warfarin and/or parental anticoagulation education - *Follow up date to check INR post discharge At least 5 days overlap therapy as Inpatient No Meds if any: Prescribed or Continued at Discharge Note: Overlap Therapy is Warfarin and Anticoagulant Meds if any: NOT Prescribed or Continued at Discharge
[2017-11-12 08:29] VITALS: BP 120/70
[2017-11-12 08:47] LABS: ABSOLUTE BASOPHIL COUNT 0 /CUMM (0.0-0.2); ABSOLUTE EOSINOPHIL COUNT 0 /CUMM (0.0-0.7); ABSOLUTE GRANULOCYTE CT 8.5 /CUMM (1.4-6.5); ABSOLUTE LYMPH COUNT 0.9 /CUMM (1.2-3.4); ABSOLUTE MONOCYTE COUNT 0.2 /CUMM (0.10-0.60); BASOPHIL % 0.1 % (0.0-2.0); EOSINOPHIL % 0 % (0-5); GRANULOCYTE % 88.8 % (42.2-75.2); HEMATOCRIT 42.8 % (42-52); MEAN CORPUSCULAR HGB CONC 32.8 G/DL (33.0-37.0); MEAN CORPUSCULAR VOLUME 91.3 FL (80.0-94.0); MEAN PLATELET VOLUME 9.6 FL (7.4-10.4); PLATELET COUNT 271 /CUMM (130-400); RBC DISTRIBUTION WIDTH 14.1 % (11.5-14.5); RED BLOOD CELL CT 4.69 /CUMM (4.70-6.10)
[2017-11-12 09:33] LABS: WHITE BLOOD CELL COUNT 9.6 /CUMM (4.8-10.8)
--- NOTE | 2017-11-12 10:32 | PN- Att Addend ---
Attending Addendum Attending Brief Note Patient seen and examined, he says that he is feeling much better and he wants to leave. Patient apparently refused BiPAP overnight. He does not want any other testing and does not want to stay in the hospital. Currently he is on room air. He was started on IV steroids as of yesterday. He was kept on TRC nebs. Patient understands that leaving prematurely could result in worsening of his symptoms, more shortness of breath, respiratory failure worsening and even . He did the same thing at [facility] about 2 weeks ago. He understands all the risks but still want to leave. Patient has signed the AMA form. He will be given prescription for steroid taper.
--- NOTE | 2017-11-12 11:14 | Discharge Summary ---
Visit Information Visit Dates Admission Date: 11/11/17 Discharge Date: 11/12/17 Hospital Course Course Attending Physician: Sasha Pendleton MD Primary Care Physician: Teressa Hoang APRN Hospital Course: 47 YO male who was lasted admitted to [facility] one week prior presents to the ED with shortness of breath and increased work of breathing. He has a past medical history of COPD, T2DM, and Charcot Elana Tooth disease. At the time of admission-temperature 100.1 , pulse rate 124 , respiration 22 , blood pressure 153/76, pulse ox 90 on room air. Etiology for his presentation acutely to the ED in this case of dyspnea and increased work of breathing with improvement of oxygen saturation on 4 L nasal cannula is likely related to Hypercapneic Respiratory Failure. Treatment involves initiating bronchodilator therapy with subsequent steroid administration to decrease inflammatory process and work of breathing. Likely patient's presentation is related to long standing history of tobacco usage without any history of established home regimen treatment with either bronchodilator and/or steroids. 1. Hypercapneic Respiratory Failure - Acute worsening of patient's respiratory symptoms beyond baseline in patient with history of Chronic Obstructive Pulmonary Disease - Admit to general medicine floor for monitoring and assessment of vitals/ breathing - Oxygen therapy to maintain saturation > 92% via NC - Solu-Medrol 40 mg q8 hours + Albuterol q4 hours prn - ABG follow-up to assess for any developing acidemia and CO2 retention - CXR: No acute disease - Prescribed Prednisone taper to be taken at home upon discharge Patient left against medical advice. Risks of leaving without further treatment was discussed with him and he understood. Patient was given a script for a prednisone taper and advised to see his primary care phsycian and return to the hospital immediately if he has any signficant respiratory distress or other symptoms. Allergies: Coded Allergies: onion (FACIAL AND TONGUE SWELLING, CAN'T BREATHE 11/11/17) pepper (FACIAL, TONGUE, THROAT SWELLS AND CANT BREATHE 11/11/17) Disposition Summary Disposition Principal Diagnosis: COPD exacerbation Additional Diagnosis: Anxiety Discharge Disposition: left against medical adv Discharge Instructions General Discharge Information Code Status: Do Not Resucitate/Intubat Patient's Diet: Regular diet, As tolerated Patient's Activity: As tolerated Follow-Up Instructions/Appts: - Please follow up with your primary care physician within 1-2 weeks of discharge. Inform your primary care physician of this admission to [facility]. - Continue your current medications per discharge instructions. - Please watch for these problems: Fever, Chills, Nausea, Vomiting, Shortness of Breath, Productive Cough, Chest Pain/Discomfort, Abdominal Pain, Active Bleeding or Bloody urine/stool. Medications at Discharge Discharge Medications: Continue taking these medications: Pregabalin (Lyrica) 300 MG CAPSULE 1 Capsule ORAL THREE TIMES DAILY Comments: Last Taken:11/12/17 Time: 8:30 AM Mirtazapine (Mirtazapine) 30 MG TABLET 1 Tablet ORAL Every night Comments: Last Taken:11/11/17 Time: 9:00 PM Clonidine HCl (Clonidine HCl) 0.1 MG TABLET 1 Tablet ORAL TWICE DAILY Comments: Last Taken:11/12/17 Time: 8:30 AM Folic Acid (Folic Acid) 1 MG TABLET 1 Tablet ORAL DAILY Comments: Last Taken:11/12/17 Time: 8:30 AM Omeprazole (Omeprazole) 40 MG CAPSULE.DR 1 Capsule ORAL DAILY Comments: Last Taken:11/12/17 Time: 7:00 AM Start taking the following new medications: Prednisone (Prednisone) 10 MG TABLET 1 Tablet ORAL DAILY Qty = 42 No Refills Instructions: Take as directed Comments: 11/12-: Take 6 tablets, once daily 11/14-: Take 5 tablets, once daily 11/16-: Take 4 tablets, once daily 11/18-: Take 3 tablets, once daily 11/20-: Take 2 tablets, once daily 11/22-: Take 1 tablets, once daily Copies To: Teressa Hoang APRN
--- NOTE | 2017-11-12 11:15 | PN- Housestaff ---
Subjective Follow-up For: COPD exacerbation Subjective: Afebrile overnight. Patient is awake and doing well this morning. Patient is off the Nasal cannula and is breathing on his own. Patient denies any difficulty breathing or shortness of breath today. Patient however would like to go home today and requests to leave. Patient is advised to stay according to medical management but decides to leave against medical advice. Review of Systems Constitutional: Reports: see HPI. Objective Last 24 Hrs of Vital Signs/I&O Vital Signs Date Time Temp Pulse Resp B/P B/P Pulse O2 O2 Flow FiO2 Mean Ox Delivery Rate 11/12 0829 68 120/70 94 Room Air 11/12 0626 97.9 59 20 98/70 93 Room Air 11/11 2154 98.2 68 20 103/68 90 08/04 2110 68 103/68 11/11 1931 Room Air 11/11 1518 98.5 90 20 130/68 95 Nasal 4.0L Cannula 11/11 1508 94 Nasal 4.0L Cannula 11/11 1353 99.9 101 24 160/88 94 Nasal 4.0L Cannula Intake & Output 11/12 1600 11/12 0800 08 0000 Intake Total 240 Output Total Balance 240 Intake, Oral 240 Number 0 Bowel Movements Patient 186 lb Weight Weight Bed scale Measurement Method Physical Exam General Appearance: Alert, Oriented X3, Cooperative, No Acute Distress HEENT: Atraumatic Neck: Supple, No JVD Cardiovascular: Regular Rate, Normal S1, Normal S2 Lungs: Clear to Auscultation Neurological: Normal Speech Extremities: No Edema Assessment/Plan Assessment: Plan Imaging- CXR: No acute pulmonary disease. At the time of admission-temperature 100.1 , pulse rate 124 , respiration 22 , blood pressure 153/76, pulse ox 90 on room air. #Hypercapneic Respiratory Failure - Acute worsening of patient's respiratory symptoms beyond baseline in patient with history of Chronic Obstructive Pulmonary Disease - Admit to general medicine floor for monitoring and assessment of vitals/ breathing - Oxygen therapy to maintain saturation > 92% via NC - Solu-Medrol 40 mg q8 hours + Albuterol q4 hours prn - CXR: No acute disease - DVT PPx. #Home medications - Continue home medications as indicated Disposition: Discharged, AMA Code: DNR/DNI Problem List: 1. COPD exacerbation Pain Ratin Pain Location: NA Pain Goal: Remain pain free Pain Plan: NA Tomorrow's Labs & Rationales: CRISTAL
== END 2017-11-12 10:20 | disposition left against medical advice (07) | DRG 140 ==
LOC: ERH 09:42 → ERHI 12:55 → ENRESERV 13:35 → ENTRNSPT 14:10 → EDTRNSPTSTS 14:14 → EDTRNSPT 14:14 → 2NA 14:18 → CMPTRNSPT 14:23 → 2NA 11-12 10:20
PROVIDERS: Physician Assistant Medical; Student in an Organized Health Care Education/Training Program
DX: J44.1 Chronic obstructive pulmonary disease with (acute) exacerbation (principal); J96.01 Acute respiratory failure with hypoxia; J96.02 Acute respiratory failure with hypercapnia; E11.9 Type 2 diabetes mellitus without complications; G60.0 Hereditary motor and sensory neuropathy; F41.9 Anxiety disorder, unspecified; F17.200 Nicotine dependence, unspecified, uncomplicated; Z91.018 Allergy to other foods; Z66 Do not resuscitate
CPT/HCPCS: 2NASP; 36592; 71046; 82436; 87040; 87070; 93005; 93010; 96374; J0131; J1650; J2920; J2930; J3490